=== PATIENT | female | born 1950 | race Caucasian/White ===

== ENCOUNTER 2017-06-28 05:56 | Day surgery (SDC) | payer OTHER ==
[2017-06-28] MEDS ORDERED: Dextrose 5%-Lactated Ringers 1,000 ML IV SCH (06:00)
[2017-06-28] MEDS ORDERED: Acetaminophen 500 MG Tab PO ONE (06:00)
[2017-06-28] MEDS ORDERED: ceFAZolin 2 GM in Premix Bag 1 BAG IV ONE (06:30)
[2017-06-28] MEDS ORDERED: Lidocaine 1% with EPINEPHrine 1:100,000 50 ML MDV ONE (06:44)
[2017-06-28] MEDS ORDERED: Lidocaine 0.5% 50 ML SDV ONE (07:03)
[2017-06-28] MEDS ORDERED: fentaNYL 100 MCG/2 ML SDV ONE (07:03)
[2017-06-28] MEDS ORDERED: Midazolam 1 MG/ML 2 ML SDV ONE (07:03)
[2017-06-28] MEDS ORDERED: Propofol 200 MG/20 ML SDV ONE (07:03)
[2017-06-28] MEDS ORDERED: Ketorolac 60 MG/2 ML SDV ONE (07:41)
[2017-06-28] MEDS ORDERED: HYDROmorphone 2 MG Tab PO PRN (08:54)
--- NOTE | 2017-07-03 02:50 | OR ---
DATE OF PROCEDURE: 06/28/2017 PREOPERATIVE DIAGNOSIS: Right carpal tunnel syndrome. POSTOPERATIVE DIAGNOSIS: Right carpal tunnel syndrome. OPERATIVE PROCEDURE: Right carpal tunnel release (82182). ANESTHESIA: IV block plus sedation. DAILY SALES AUDIT CLERK: Drake Martinez MS-3. INDICATION FOR PROCEDURE: This is a 66-year-old presenting with a right carpal tunnel syndrome. After preoperative evaluation and discussion, she wished to proceed with a carpal tunnel release. Potential risks, including bleeding, infection, injury to the median nerve and/or its branches, possible incomplete relief of symptoms were all reviewed, and the patient wishes to proceed. DETAILS OF PROCEDURE: The patient was taken to the operating room, and after IV sedation was administered, IV block was placed affecting the right forearm and hand and those areas were prepped and draped. A standard carpal tunnel incision was made, carried down through the skin and subcutaneous tissue. The external oblique aponeurosis was then identified and then divided for its length under direct vision maintaining ulnar orientation with regard to the underlying median nerve. This extended on to the palmar hand until there was complete relief of any pressure on the nerve and extended also somewhat proximally. At that point, the nerve appeared to be well-decompressed. The ligament was fairly thickened, retracted under some tension upon its division. No further problems were noted. At this point, the incision was closed with some 4-0 Vicryl subdermal stitch and 5-0 Prolene skin stitch. Dressing was applied. The patient was taken to the recovery room in satisfactory condition. Shashank Camacho MD /[id number]
== END 2017-06-28 09:50 | disposition home or self-care (01) ==
LOC: JP.SDS 05:56
PROVIDERS: ATTEND Surgery
DX: G56.01 Carpal tunnel syndrome, right upper limb (principal); I10 Essential (primary) hypertension; K21.9 Gastro-esophageal reflux disease without esophagitis; E66.9 Obesity, unspecified; Z79.899 Other long term (current) drug therapy
CPT/HCPCS: 64721; A9270; J0690; J1885; J2250; J2704; J3010; J7042